=== PATIENT | male | born 1960 | race Caucasian/White ===

== ENCOUNTER 2018-11-28 18:17 | Emergency (ER) | payer BC ==
--- OUTSIDE RECORDS SUMMARY | 2018-11-28 18:29 | XMS REPORT | Continuity of Care Document ---
:1960 External Reference #:[id number] Author Name Joanne Salvador Care Team Providers Name Role Phone James Pro M.D. Care Team Information Manager Of Housekeeping Unavailable Payers Type Date Identification Numbers Payment Provider Subscriber Policy Number: [id number] JOE Alla Blackmon PayID: [id number] [address] [address] [place] [address] Advance Directives Description No Information Available Problems Description No Information Family History Date Family Member(s) Problem(s) Comments Father Non Contributory Mother Non Contributory Social History Type Date Description Comments Sex Unknown Occupation Nursing Specialist Tobacco Use Start: Unknown currently smokes 1/2 Pack Daily ETOH Use Current Alcohol Use - 1-3 Days A Week. Recreational Drug Use Never Used Drugs Allergies, Adverse Reactions, Alerts Description No Known Drug Allergies Medications Description No Active Medications Immunizations Description No Information Available Vital Signs Date Vital Result Comment 11/16/2018 11:49am Weight 258.00 lb Height 72 inches 6'0" BMI (Body Mass Index) 35.0 kg/m2 BP Systolic 130 mmHg BP Diastolic 72 mmHg Heart Rate 66 /min O2 % BldC Oximetry 95 % Body Temperature 98.0 F Pain Level 0 02/09/2018 1:25pm Weight 261.00 lb Height 72 inches 6'0" BMI (Body Mass Index) 35.4 kg/m2 BP Systolic 114 mmHg BP Diastolic 78 mmHg Heart Rate 91 /min O2 % BldC Oximetry 93 % Body Temperature 98.4 F [place] Score 13 Pain Level 0 04/05/2016 3:10pm Weight 243.00 lb Height 72 inches 6'0" BMI (Body Mass Index) 33.0 kg/m2 BP Systolic 132 mmHg BP Diastolic 76 mmHg Heart Rate 86 /min O2 % BldC Oximetry 97 % Body Temperature 98.6 F [place] Score 9 Neck Circumference in inches 17.75 Results Description No Information Available Procedures Description No Information Available Encounters Type Date Location Provider Dx Diagnosis Office Visit 02/09/2018 Main Office James Pro M.D. G47.33 Obstructive sleep 1:15p apnea (adult) (pediatric) E66.9 Obesity, unspecified Office Visit 04/05/2016 2:45p Main Office James Pro G47.33 Obstructive sleep Vijaya apnea (adult) (pediatric) E66.9 Obesity, unspecified Z72.0 Tobacco use H93.13 Tinnitus, bilateral H91.90 Unspecified hearing loss, unspecified ear R25.1 Tremor, unspecified Plan of Treatment No Information Available
[2018-11-28 18:43] VITALS: BP 129/76
[2018-11-28] MEDS ORDERED: Ketorolac INJ* 30 MG/ML 1 ML VIAL IM ONE (18:52)
--- NOTE | 2018-11-28 18:59 | UC ---
Respiratory Complaint HPI - HPI Summary HPI Summary: The patient is a 58-year-old male with a less than 24-hour history of headache and myalgias runny nose and cough. He feels very fatigued. He denies any chest pain or shortness of breath. History of prostate cancer. He denies any history of asthma or pneumonia. - History of Current Complaint Chief Complaint: UCGeneralIllness Stated Complaint: FEVER,HEADACHE Time Seen by Provider: 11/28/18 18:42 Hx Obtained From: Patient Onset/Duration: Gradual Onset, Lasting Hours Timing: Constant Severity Initially: Moderate Severity Currently: Moderate Pain Intensity: 7 Pain Scale Used: 0-10 Numeric Character: Cough: Nonproductive Aggravating Factors: Nothing Alleviating Factors: Nothing Associated Signs And Symptoms: Positive: Fever, Chills, Nasal Congestion - Allergies/Home Medications Allergies/Adverse Reactions: Allergies Allergy/AdvReac Type Severity Reaction Status Date / Time No Known Allergies Allergy Verified 11/28/18 18:31 Home Medications: Home Medications D-Methorphan/PE/Acetaminophen [Theraflu Severe Cold Mult 20-10-500 mg] 1 dipak PO DAILY PRN 11/28/18 [History Confirmed 11/28/18] Glycopyrrolate TAB(NF) [Robinul TAB(NF)] 1 mg PO DAILY 11/28/18 [History Confirmed 11/28/18] Multivit-Min/Folic/Vit K/Lycop [Men's 50 Plus Multivitamin Tab] 1 each PO DAILY 11/28/18 [History Confirmed 11/28/18] Tadalafil [Cialis] 5 mg PO DAILY 11/28/18 [History Confirmed 11/28/18] Tadalafil [Cialis] 20 mg PO DAILY PRN 11/28/18 [History Confirmed 11/28/18] PMH/Surg Hx/FS Hx/Imm Hx Previously Healthy: Yes Endocrine History: Dyslipidemia Cancer History: Prostate Cancer - Surgical History Surgical History: Yes Surgery Procedure, Year, and Place: PLATE IN NECK CSP FUSION. Prostate sx - Family History Known Family History: Positive: Hypertension - Social History Alcohol Use: Weekly Substance Use Type: None Smoking Status (MU): Former Smoker Type: Cigarettes Amount Used/How Often: 1/2 PK DAILY Length of Time of Smoking/Using Tobacco: APPROX 25 YRS. Have You Smoked in the Last Year: Yes - PT USING [employer] When Did the Patient Quit Smoking/Using Tobacco: 2016 Review of Systems All Other Systems Reviewed And Are Negative: Yes Constitutional: Positive: Fever, Chills, Fatigue Skin: Positive: Negative Eyes: Positive: Negative ENT: Positive: Nasal Discharge, Sinus Congestion Respiratory: Positive: Cough Cardiovascular: Positive: Negative Gastrointestinal: Positive: Negative Genitourinary: Positive: Negative Motor: Positive: Negative Neurovascular: Positive: Negative Musculoskeletal: Positive: Myalgia Neurological: Positive: Negative Psychological: Positive: Negative Physical Exam Triage Information Reviewed: Yes Appearance: Ill-Appearing Vital Signs: Initial Vital Signs Temp 100.1 F 11/28/18 18:35 Pulse 109 11/28/18 18:35 Resp 18 11/28/18 18:35 BP 129/76 11/28/18 18:35 Pulse Ox 96 11/28/18 18:35 Vital Signs Reviewed: Yes Eyes: Positive: Conjunctiva Clear ENT: Positive: Hearing grossly normal, Pharynx normal, Nasal congestion, Nasal drainage, Uvula midline. Negative: Tonsillar swelling, Tonsillar exudate, Trismus, Muffled voice, Dental tenderness Neck: Positive: Supple, Nontender, No Lymphadenopathy Respiratory: Positive: Lungs clear, Normal breath sounds, No respiratory distress, No accessory muscle use Cardiovascular: Positive: RRR, No Murmur, Pulses Normal Musculoskeletal: Positive: ROM Intact, No Edema Neurological: Positive: Alert Psychological Exam: Normal Skin Exam: Normal UC Diagnostic Evaluation - Laboratory O2 Sat by Pulse Oximetry: 96 - normal/not hypoxic Respiratory Course/Dx - Differential Dx/Diagnosis Provider Diagnosis: Influenza A Discharge - Sign-Out/Discharge Documenting (check all that apply): Patient Departure All imaging exams completed and their final reports reviewed: Yes - Discharge Plan Condition: Stable Disposition: HOME Patient Education Materials: Influenza (ED) Referrals: Pascual Crowell DO [Doctor of Osteopathy] - 5 Days (if not better) - Billing Disposition and Condition Condition: STABLE Disposition: Home
[2018-11-28] MEDS ORDERED: Oseltamivir CAP* 75 MG CAP PO ONE ×2 (19:12)
== END 2018-11-28 19:29 | disposition home or self-care (01) ==
LOC: UCCORT 18:17
DX: J09.X2 Influenza due to identified novel influenza A virus with other respiratory manifestations (principal); Z85.46 Personal history of malignant neoplasm of prostate; F17.210 Nicotine dependence, cigarettes, uncomplicated
CPT/HCPCS: 96372; 99212; A9270-GY; G0463; J1885